=== PATIENT | female | born 1945 | race Caucasian/White ===

== ENCOUNTER → 2017-02-04 | Outpatient (CLI) | payer OTHER | LOC: BRMIMAGING 10:46 | PROVIDERS: ATTEND Family Medicine | DX: M81.0 Age-related osteoporosis without current pathological fracture (principal) ==

== ENCOUNTER 2018-01-01 12:44 | Day surgery (SDC) | payer OTHER ==
--- NOTE | 2017-12-31 15:13 | GHP ---
[f rep st] PREOP HISTORY AND PHYSICAL DATE OF ADMISSION: 01/01/2018 ADMISSION DIAGNOSIS: Left ureteral calculus. HISTORY: This lady has had a 6 x 4 mm ureterovesical junction calculus, and she is admitted for a le ft-sided 9 mm mid-pole stone and hydronephrosis. She had a stent placement in the past and at the pr esent time is admitted for the above procedure. MEDICATIONS: Include atorvastatin, levofloxacin, levothyroxine, escitalopram and tamsulosin. PAST SURGERY: Appendix and kidney stones. ALLERGIES: None. SOCIAL HISTORY: Former smoker. Nondrinker. REVIEW OF SYSTEMS: Negative for cardiac, respiratory, GI and endocrine. PHYSICAL EXAMINATION: VITAL SIGNS: Stable. Blood pressure 135/73. HEAD, EARS, EYES, NOSE, THROAT: Normal. CHEST: Clear. HEART: Regular rate and rhythm. ABDOMEN: Normal. No organomegaly, rebo und or guarding. LOWER EXTREMITIES: Normal. PLAN: At the present time, she is admitted for the left ureteroscopic removal of the stone at the le ft UVJ; and she has the renal calculus that we will try to address at the time of the procedure. /[id number]/MODL
--- NOTE | 2018-01-01 08:40 | PDHPUP ---
History & Physical Update H&P update statement: This history and physical update is based on an assessment of the patient which was completed after admission or registration (within 24 hours), but prior to the surgery/procedure. H&P update: H&P reviewed & patient examined, no change in patient's condition since H&P completed
[~2018-01-01 12:44] MED LIST: IOPAMIDOL (ISOVUE-M 300) 15 ML VIAL ONE; LIDOCAINE 2% JELLY 20 ML (UROJECT) ONE; ceFAZolin 2 GM/SWFI 2 GM/20 ML SYR IVP ONE
[2018-01-01] MEDS ORDERED: LR 1,000 ML IV ONE (12:56)
[2018-01-01] MEDS ORDERED: ceFAZolin 2 GM/SWFI 20 ML SYR IVP ONE (13:30)
[2018-01-01] MEDS ORDERED: LIDOCAINE 2% JELLY 20 ML (UROJECT) ONE (13:44)
[2018-01-01] MEDS ORDERED: IOPAMIDOL (ISOVUE-300) 150 ML BTL ONE (13:44)
--- NOTE | 2018-01-01 13:59 | PDANEPAE ---
ANE History of Present Illness 72 year old female for left ureteroscopy and laser lithotripsy. ANE Past Medical History - Cardiovascular History Hx Hypertension: No Hx Arrhythmias: No Hx Chest Pain: No Hx Coronary Artery / Peripheral Vascular Disease: No Hx CHF / Valvular Disease: No Hx Palpitations: No - Pulmonary History Hx COPD: No Hx Asthma/Reactive Airway Disease: No Hx Recent Upper Respiratory Infection: No Hx Oxygen in Use at Home: No Hx Sleep Apnea: No Sleep Apnea Screening Result - Last Documented: Negative - Neurologic History Hx Cerebrovascular Accident: No Hx Seizures: No Hx Dementia: No - Endocrine History Hx Diabetes: No Hypothyroid: Yes Hyperthyroid: No Obesity: no - Renal History Hx Renal Disorders: Yes Renal History Comment: kidney stones - Liver History Hx Hepatic Disorders: No - Neurological & Psychiatric Hx Hx Neurological and Psychiatric Disorders: Yes Neurological / Psychiatric History Comment: anxiety - Cancer History Hx Cancer: No - Congenital Disorder History Hx Congenital Disorders: No - GI History Hx Gastrointestinal Disorders: Yes Gastrointestinal History Comment: diahhrea diverticulitis - Other Health History Other Health History: none - Chronic Pain History Chronic Pain: Yes (HEMMORROIDS) - Surgical History Prior Surgeries: 12/19/17 renal stent placement ANE Review of Systems Review of systems is: negative Review of Systems: - Exercise capacity Exercise capacity: >=4 METS METS (RN): 4 METS ANE Patient History - Allergies Allergies/Adverse Reactions: No Known Allergies Allergy (Verified 12/31/17 16:43) - Home Medications Home medications: home medication list seen and reviewed Home Medications: Atorvastatin Calcium 12/31/17 [Last Taken 01/01/18 08:00] Levothyroxine 12/31/17 [Last Taken 01/01/18 08:00] - NPO status NPO Status: no food or drink >8 hours NPO Since - Liquids (Date): 01/01/18 NPO Since - Liquids (Time): 08:00 NPO Since - Solids (Date): 12/31/17 NPO Since - Solids (Time): 20:00 - Anes Hx Anes Hx: no prior problems - Smoking Hx Smoking Status: Former smoker Marijuana use: No - Alcohol Use Alcohol Use: Occasionally - Family Anes Hx Family Anes Hx: neg - N/A Family Hx Anesthesia Complications: none ANE Labs/Vital Signs - Vital Signs Vital Signs: reviewed preoperatively; see RN documention for details Blood Pressure: 128/72 Heart Rate: 64 Respiratory Rate: 16 O2 Sat (%): 93 Height: 170.18 cm Weight: 68.039 kg ANE Physical Exam - Airway Neck exam: FROM Mallampati Score: Class 2 Mouth exam: normal dental/mouth exam, dentures Mouth image: 1 - PERMANENT BRIDGE - Pulmonary Pulmonary: no respiratory distress - Cardiovascular Cardiovascular: regular rate and rhythym - ASA Status ASA Status: II ANE Anesthesia Plan Anesthesia Plan: GA w LMA Total IV Anesthesia: No
[2018-01-01] MEDS ORDERED: PROPOFOL 200 MG/20 ML VIAL ONE (14:10)
[2018-01-01] MEDS ORDERED: LIDOCAINE 2% 5 ML SDV ONE (14:10)
[2018-01-01] MEDS ORDERED: fentaNYL 100 MCG/2 ML INJ ONE (14:10)
[2018-01-01] MEDS ORDERED: PHENYLEPHRINE HCL 100 MCG/ML SYR ONE (14:38)
--- NOTE | 2018-01-01 15:39 | POSTOPPROG ---
Post Op Note Date of Operation: 01/01/18 Surgeon: Marcus Negrete Anesthesia: LMA Pre-op Diagnosis: stone Post-op Diagnosis: stone Indication: stone Procedure: ureteroscopy , laser, nephroscopy laser stones Inf/Abcess present in the surg proc area at time of surgery?: No EBL: Minimal Drains: Other (stent) Specimen(s): stone sent, --- dictated--called
[2018-01-01] MEDS ORDERED: fentaNYL 100 MCG/2 ML INJ IVP PRN (15:42)
[2018-01-01] MEDS ORDERED: NALOXONE HCL 0.4 MG/ML INJ IVP PRN (15:42)
[2018-01-01] MEDS ORDERED: ONDANSETRON 4 MG/2 ML VIAL IVP PRN (15:42)
[2018-01-01] MEDS ORDERED: PHENYLEPHRINE HCL 100 MCG/ML SYR IVP PRN (15:42)
[2018-01-01] MEDS ORDERED: LR 500 ML IV PRN (15:42)
[2018-01-01] MEDS ORDERED: HYDROmorphONE/DILAUDID 1 MG/ML INJ IVP PRN (15:42)
--- NOTE | 2018-01-01 15:58 | GOP ---
[f rep st] OPERATIVE REPORT DATE OF OPERATION: 01/01/2018 SURGEON: Marcus Negrete MD PREOPERATIVE DIAGNOSIS: Left ureteral calculus and left nephrolithiasis and hydronephrosis. POSTOPERATIVE DIAGNOSIS: Left ureteral calculus and left nephrolithiasis and hydronephrosis. PROCEDURE PERFORMED: Cystoscopy, retrograde ureteral pyelogram with interpretation, ureteroscopy wit h ureteral lithotripsy of a ureteral stone and then nephroscopy with laser lithotripsy of a renal sto ne, and placement of a multi-length ureteral catheter under fluoroscopic control with interpretation. FINDINGS: DESCRIPTION OF PROCEDURE: Lady underwent general anesthesia, was prepped and draped in the normal st erile fashion. Her stent was brought to the meatus and then I passed a guidewire over under fluorosc opic control, and her ureter was dilated from the stents. I was able to pass the semi-rigid scope up and the distal ureteral stone was fragmented and extracted and sent off for analysis. Then, at that point, I passed a ureteral access sheath up to the kidney with the flexible ureteroscope, was able t o identify the stone in the lower pole calyx and fragmented in multiple pieces and extracted some of these pieces with the basket. At the end of the procedure, there were no significant residual stones , mostly dusted. There were no other stones in any of the calices and then on removal of the scope f rom the ureter with a guidewire in place, noted no disruption of the ureter. Distal ureteral edema fr om a prior impacted stone was identified. So at that point, placed a multi-length stent that curled in the renal pelvis, curled in the bladder. Uro-Jet placed into the urethra after emptying the bladd er. She will be discharged home with a stent in place and have her follow up in 1 week for stent rem oval. Specimen for stone analysis sent. Complications, none. Estimated blood loss, less than 10 mL. /[id number]/MODL
[2018-01-01 16:51] VITALS: PULSE 68; RESP 18; TEMP 98.1
[2018-01-01 17:38] VITALS: BP 128/73
--- NOTE | 2018-01-01 17:50 | POSTANESTH ---
Post Anesthetic Evaluation Cardiovascular Status: Normal, Stable, Similar to Pre-Op Cond Respiratory Status: Normal, Stable, Similar to Pre-op Cond. Level of Consciousness/Mental Status: Can Participate in Eval, Alert and Oriented Pain Control: Adequate, Prn Tx Ordered Nausea/Vomiting Control: Adequate, Prn Tx Ordered Complications Possibly Related to Anesthesia: None Noted
[2018-01-01 18:05] VITALS: O2SAT 94
== END 2018-01-01 18:00 | disposition home or self-care (01) ==
LOC: FSGY 12:44
PROVIDERS: ATTEND Specialist
PROC: 0T9480Z Drainage of Left Kidney Pelvis with Drainage Device, Via Natural or Artificial Opening Endoscopic (ICD-10-PCS; principal; 2018-01-01 14:30)
PROC: 0TC78ZZ Extirpation of Matter from Left Ureter, Via Natural or Artificial Opening Endoscopic (ICD-10-PCS; principal; 2018-01-01 14:30)
PROC: BT141ZZ Fluoroscopy of Kidneys, Ureters and Bladder using Low Osmolar Contrast (ICD-10-PCS; principal; 2018-01-01 14:30)
DX: N13.2 Hydronephrosis with renal and ureteral calculous obstruction (principal); Z87.442 Personal history of urinary calculi; Z87.891 Personal history of nicotine dependence
CPT/HCPCS: 52353; 76001; C1758; C1769; C1894; 82365-90; C2625; J0690; J2370; J2704; J3010; Q9967

== ENCOUNTER → 2018-01-08 | Outpatient (CLI) | payer OTHER | LOC: FLAB 10:34 → FIMAGING 10:34 → EDSTATUS 10:36 | PROVIDERS: ATTEND Specialist | DX: N20.1 Calculus of ureter (principal) ==

== ENCOUNTER → 2018-12-01 | Outpatient (CLI) | payer OTHER | LOC: BRMIMAGING 14:52 | PROVIDERS: ATTEND Family Medicine | DX: Z12.31 Encounter for screening mammogram for malignant neoplasm of breast (principal) ==

== ENCOUNTER → 2018-12-04 | Outpatient (CLI) | payer OTHER | LOC: BRMIMAGING 09:14 ==

== ENCOUNTER → 2018-12-17 | Day surgery (SDC) | payer OTHER ==
[~2018-12-17] MED LIST changes: +BUPIVACAINE 0.5% 30 ML SDV ONE; -IOPAMIDOL (ISOVUE-M 300) 15 ML VIAL ONE; +LIDOCAINE 1% 300 MG/30 ML SDV ONE; -LIDOCAINE 2% JELLY 20 ML (UROJECT) ONE; -ceFAZolin 2 GM/SWFI 2 GM/20 ML SYR IVP ONE
== END | disposition home or self-care (01) ==
LOC: FIMAGING 07:26
PROVIDERS: ATTEND Radiology Diagnostic Radiology
PROC: 0HBT3ZX Excision of Right Breast, Percutaneous Approach, Diagnostic (ICD-10-PCS; principal; 2018-12-17)
DX: D24.1 Benign neoplasm of right breast (principal)